=== PATIENT | female | born 1955 | race Hispanic/Latino ===

== ENCOUNTER 2016-12-20 19:13 | Emergency (ER) | payer MEDICARE ==
[2016-12-20 19:56] LABS: Hematocrit 39.7 % (30.3-42.9); Hemoglobin 13.1 gm/dl (10.1-14.3); Mean Corpuscular HGB Conc 33 % (30-34); Mean Corpuscular Hemoglobin 29 pg (28-32); Mean Corpuscular Volume 87 fl (79-97); Red Blood Count 4.59 M/mm3 (3.65-5.03); Red Cell Distribution Width 15.1 % (13.2-15.2); White Blood Count 10.4 K/mm3 (4.5-11.0)
[2016-12-20 19:57] LABS: Platelet Count 223 K/mm3 (140-440)
[2016-12-20 20:12] LABS: Anion Gap 19 mmol/L; BUN/Creatinine Ratio 18.57; Blood Urea Nitrogen 13 mg/dL (7-17); Calcium 9.3 mg/dL (8.4-10.2); Carbon Dioxide 23 mmol/L (22-30); Glucose 191 mg/dL (65-100); Magnesium 1.5 mg/dL (1.7-2.3); Potassium 4.4 mmol/L (3.6-5.0); Sodium 132 mmol/L (137-145)
--- NOTE | 2016-12-20 21:03 | Emergency Department Report ---
ED General Adult HPI - General Chief complaint: Nausea/Vomiting/Diarrhea Stated complaint: DIARRHEA Time Seen by Provider: 12/20/16 19:22 Source: patient, EMS, RN notes reviewed Mode of arrival: Stretcher Limitations: Physical Limitation - History of Present Illness Initial comments: This is a 61-year-old female. She is previously unknown to me. Past medical history of morbid obesity, possible distant history of C. 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 Also has a history of hypertension and diabetes. She is brought to the hospital by EMS for complaint of diarrhea for 3-6 months. Patient has seen her primary care doctor for this problem without relief. The patient reports one bowel movement yesterday. She reports 2 bowel movements today. No vomiting. No fevers or chills. No chest pain or shortness of breath. No recent antibiotic congestion. The patient reports that her contacted 911 because he is the only person who is caring for the patient, and the patient reports that the feels like he needs help with caring for the patient. -: Gradual, month(s) Consistency: intermittent Improves with: none Worsens with: none Associated Symptoms: denies: confusion, chest pain, cough, diaphoresis, fever/ chills, headaches, loss of appetite, malaise, shortness of breath, syncope, weakness - Related Data Home Medications Medication Instructions Recorded Confirmed Last Taken FLUoxetine [Prozac] 10 mg PO QDAY 01/26/14 01/26/14 Unknown Lisinopril [Zestril] 2.5 mg PO QDAY 01/26/14 01/26/14 Unknown Simvastatin [Zocor] 20 mg PO QHS 01/26/14 01/26/14 Unknown metFORMIN [Glucophage] 500 mg PO BID 01/26/14 01/26/14 Unknown Previous Rx's Medication Instructions Recorded Last Taken Type Amlodipine Besylate [Norvasc] 2.5 mg PO DAILY #90 tab 01/27/14 Unknown Rx Magnesium Oxide [Magnesium] 400 mg PO BID #14 tablet 12/20/16 Unknown Rx Nitrofurantoin [place]/M-Cryst 100 mg PO Q12HR #14 capsule 12/20/16 Unknown Rx [Macrobid CAP] Allergies Allergy/AdvReac Type Severity Reaction Status Date / Time No Known Allergies Allergy Unverified 01/26/14 15:11 ED Review of Systems ROS: Stated complaint: DIARRHEA Other details as noted in HPI Constitutional: denies: fever, malaise Eyes: denies: vision change ENT: denies: epistaxis Respiratory: denies: cough Cardiovascular: denies: chest pain Gastrointestinal: diarrhea. denies: abdominal pain Genitourinary: denies: urgency, dysuria Musculoskeletal: denies: back pain Skin: denies: lesions Neurological: weakness (chronic) Psychiatric: as per HPI ED Past Medical Hx - Past Medical History Hx Hypertension: Yes Hx Diabetes: Yes Hx Arthritis: Yes Hx COPD: Yes - Surgical History Additional Surgical History: 2011. - Social History Smoking Status: Never Smoker - Medications Home Medications: Home Medications Medication Instructions Recorded Confirmed Last Taken Type FLUoxetine [Prozac] 10 mg PO QDAY 01/26/14 01/26/14 Unknown History Lisinopril [Zestril] 2.5 mg PO QDAY 01/26/14 01/26/14 Unknown History Simvastatin [Zocor] 20 mg PO QHS 01/26/14 01/26/14 Unknown History metFORMIN [Glucophage] 500 mg PO BID 01/26/14 01/26/14 Unknown History Amlodipine Besylate [Norvasc] 2.5 mg PO DAILY #90 tab 01/27/14 Unknown Rx Magnesium Oxide [Magnesium] 400 mg PO BID #14 tablet 12/20/16 Unknown Rx Nitrofurantoin [place]/M-Cryst 100 mg PO Q12HR #14 capsule 12/20/16 Unknown Rx [Macrobid CAP] ED Physical Exam - General Limitations: Physical Limitation General appearance: alert, in no apparent distress - Head Head exam: Present: atraumatic, normocephalic - Eye Eye exam: Present: normal appearance, EOMI. Absent: nystagmus - ENT ENT exam: Present: normal exam, normal orophraynx, mucous membranes moist, normal external ear exam - Neck Neck exam: Present: normal inspection, full ROM. Absent: tenderness, meningismus - Respiratory Respiratory exam: Present: normal lung sounds bilaterally. Absent: respiratory distress, wheezes, rales, rhonchi, stridor, decreased breath sounds - Cardiovascular Cardiovascular Exam: Present: regular rate, normal rhythm, normal heart sounds. Absent: bradycardia, tachycardia, irregular rhythm, systolic murmur, diastolic murmur, rubs, gallop - GI/Abdominal GI/Abdominal exam: Present: soft, normal bowel sounds. Absent: distended, tenderness, guarding, rebound, rigid, pulsatile mass - Rectal Rectal exam: Present: deferred, normal inspection, other (no obvious skin breakdown.) - Extremities Exam Extremities exam: Present: normal inspection, full ROM, normal capillary refill. Absent: tenderness, pedal edema, joint swelling, calf tenderness - Back Exam Back exam: Present: normal inspection, full ROM. Absent: tenderness, CVA tenderness (R), CVA tenderness (L), muscle spasm, paraspinal tenderness, vertebral tenderness - Neurological Exam Neurological exam: Present: alert, other (patient moves 4 extremities spontaneously. There is no facial droop.) - Psychiatric Psychiatric exam: Present: normal affect, normal mood - Skin Skin exam: Present: warm, dry, intact, normal color. Absent: rash ED Course Vital Signs 12/20/16 12/20/16 12/20/16 19:20 20:16 20:19 Temperature 97.7 F Pulse Rate 90 83 90 Respiratory 20 16 22 Rate Blood Pressure 117/49 117/49 O2 Sat by Pulse 96 95 94 Oximetry 12/20/16 12/20/16 12/20/16 20:20 20:23 20:25 Temperature Pulse Rate 82 86 88 Respiratory 23 20 23 Rate Blood Pressure 117/49 117/49 O2 Sat by Pulse 96 96 95 Oximetry 12/20/16 12/20/16 12/20/16 20:27 20:29 20:30 Temperature Pulse Rate 93 H 88 89 Respiratory 18 16 21 Rate Blood Pressure 117/49 117/49 130/68 O2 Sat by Pulse 94 95 94 Oximetry 12/20/16 12/20/16 12/20/16 20:33 20:35 20:37 Temperature Pulse Rate 90 94 H 87 Respiratory 20 19 21 Rate Blood Pressure 130/68 130/68 130/68 O2 Sat by Pulse 96 95 95 Oximetry 12/20/16 12/20/16 12/20/16 20:39 20:41 20:43 Temperature Pulse Rate 88 88 87 Respiratory 19 14 20 Rate Blood Pressure 130/68 130/68 130/68 O2 Sat by Pulse 98 97 96 Oximetry 12/20/16 12/20/16 12/20/16 20:45 20:47 20:49 Temperature Pulse Rate 91 H 93 H 88 Respiratory 20 19 27 H Rate Blood Pressure 130/68 130/68 130/68 O2 Sat by Pulse 96 95 96 Oximetry 12/20/16 12/20/16 12/20/16 20:51 20:53 20:55 Temperature Pulse Rate 90 92 H 104 H Respiratory 15 19 13 Rate Blood Pressure 130/68 130/68 130/68 O2 Sat by Pulse 99 98 Oximetry 12/20/16 12/20/16 12/20/16 20:57 20:59 21:01 Temperature Pulse Rate 83 83 83 Respiratory 16 20 16 Rate Blood Pressure 130/68 130/68 130/68 O2 Sat by Pulse Oximetry 12/20/16 12/20/16 12/20/16 21:03 21:05 21:07 Temperature Pulse Rate 87 83 83 Respiratory 22 22 19 Rate Blood Pressure 130/68 130/68 130/68 O2 Sat by Pulse Oximetry 12/20/16 12/20/16 12/20/16 21:09 21:11 21:13 Temperature Pulse Rate 82 97 H 86 Respiratory 18 16 17 Rate Blood Pressure 130/68 130/68 130/68 O2 Sat by Pulse Oximetry 12/20/16 12/20/16 12/20/16 21:15 21:17 21:19 Temperature Pulse Rate 83 83 79 Respiratory 13 20 10 L Rate Blood Pressure 130/68 130/68 130/68 O2 Sat by Pulse Oximetry 12/20/16 12/20/16 12/20/16 21:21 21:23 21:25 Temperature Pulse Rate 89 82 81 Respiratory 17 23 17 Rate Blood Pressure 130/68 130/68 130/68 O2 Sat by Pulse Oximetry 12/20/16 12/20/16 12/20/16 21:27 21:29 21:31 Temperature Pulse Rate 82 81 82 Respiratory 12 16 22 Rate Blood Pressure 130/68 130/68 130/68 O2 Sat by Pulse Oximetry 12/20/16 12/20/16 12/20/16 21:33 21:35 21:37 Temperature Pulse Rate 78 81 84 Respiratory 21 25 H 22 Rate Blood Pressure 130/68 130/68 130/68 O2 Sat by Pulse Oximetry 12/20/16 12/20/16 12/20/16 21:39 21:41 21:43 Temperature Pulse Rate 84 91 H 89 Respiratory 15 26 H 11 L Rate Blood Pressure 130/68 130/68 130/68 O2 Sat by Pulse Oximetry 12/20/16 12/20/16 12/20/16 21:45 21:47 21:49 Temperature Pulse Rate 78 83 81 Respiratory 17 17 18 Rate Blood Pressure 130/68 130/68 130/68 O2 Sat by Pulse Oximetry 12/20/16 12/20/16 12/20/16 21:51 21:53 21:54 Temperature Pulse Rate 89 85 97 H Respiratory 24 18 14 Rate Blood Pressure 130/68 130/68 130/68 O2 Sat by Pulse Oximetry 12/20/16 12/20/16 23:07 23:09 Temperature Pulse Rate 84 Respiratory 27 H Rate Blood Pressure 130/68 138/65 O2 Sat by Pulse 93 94 Oximetry - Reevaluation(s) Reevaluation #1: 12/20/16 21:11 Differential diagnosis: Electrolyte imbalance, urinary tract infection, irritable bowel syndrome Assessment and plan: 61-year-old female with reported history of 6 months of diarrhea. No recent antibiotic use. Reports one bowel movement yesterday, 2 bowel movements today. She is afebrile with reassuring vital signs. No leukocytosis, no recent antibiotic use, I think C. difficile is unlikely. She is somewhat hypomagnesemic, we will replete her magnesium orally and discharged with oral magnesium. Urinalysis is pending, C. difficile assay is pending. A case management consult was placed to see if the patient's is eligible for any home services. The patient can follow up with outpatient gastroenterology. I don't believe she requires admission based on chronicity of symptoms, her ability to tolerate liquid feeds, and benign physical examination. While the patient is in the emergency department, to be safe, we will initiate contact precautions. Reevaluation #2: 12/20/16 23:27 Vital signs unremarkable. Tolerating liquid feeds. Urinalysis suggestive of urinary tract infection. Patient will be discharged with Macrobid. ED Medical Decision Making - Lab Data Result diagrams: 12/20/16 19:38 12/20/16 19:38 Vital Signs 12/20/16 19:20 Temperature 97.7 F Pulse Rate 90 Respiratory 20 Rate Blood Pressure 117/49 O2 Sat by Pulse 96 Oximetry Lab Results 12/20/16 12/20/16 Range/Units 19:38 19:38 WBC 10.4 (4.5-11.0) K/mm3 RBC 4.59 (3.65-5.03) M/mm3 Hgb 13.1 (10.1-14.3) gm/dl Hct 39.7 (30.3-42.9) % MCV 87 (79-97) fl MCH 29 (28-32) pg MCHC 33 (30-34) % RDW 15.1 (13.2-15.2) % Plt Count 223 (140-440) K/mm3 Sodium 132 L (137-145) mmol/L Potassium 4.4 (3.6-5.0) mmol/L Chloride 94.0 L (98-107) mmol/L Carbon Dioxide 23 (22-30) mmol/L Anion Gap 19 mmol/L BUN 13 (7-17) mg/dL Creatinine 0.7 (0.7-1.2) mg/dL Estimated GFR > 60 ml/min BUN/Creatinine Ratio 18.57 % Glucose 191 H (65-100) mg/dL Calcium 9.3 (8.4-10.2) mg/dL Magnesium 1.5 L (1.7-2.3) mg/dL Critical care attestation.: If time is entered above; I have spent that time in minutes in the direct care of this critically ill patient, excluding procedure time. ED Disposition Clinical Impression: Diarrhea Disposition: DISCHARGED TO HOME OR SELFCARE Is pt being admited?: No Does the pt Need Aspirin: No Condition: Stable Instructions: Chronic Diarrhea (ED) Additional Instructions: Samples were sent today, results will be available in the next 3-5 days. Have a primary care doctor contact the medical records department to obtain culture results. I recommend that you follow up with a industrial maintenance tech within the next 2-[address] Marr is a local industrial maintenance tech. [facility] is a local gastroenterology practice, they have a patient service hotline where they can be reached: [phone].TO.[phone] ([phone]) Return to the ER right away with fevers or chills, chest pain or shortness of breath, intractable nausea or vomiting, inability to tolerate liquid feeds. Prescriptions: Magnesium Oxide [Magnesium] 400 mg PO BID #14 tablet Nitrofurantoin [place]/M-Cryst [Macrobid CAP] 100 mg PO Q12HR #14 capsule Referrals: VAMSI MURGUIA MD [Primary Care Provider] - 3-5 Days ZAK MARR MD [Staff Physician] - 3-5 Days
[2016-12-20] MEDS ORDERED: MAG-OX PO ONE (21:05)
[2016-12-20 22:50] LABS: Bacteria,Urine 1+ /HPF (Negative); Bilirubin,Urine NEG (Negative); Blood,Urine SM (Negative); Ketones,Urine NEG (Negative); Leukocyte Esterase,Urine MOD (Negative); Mucus,Urine FEW /HPF; Nitrite,Urine NEG (Negative)
[2016-12-20 23:15] VITALS: BP 138/65
== END 2016-12-20 21:20 | disposition home or self-care (01) ==
LOC: ED 19:13
DX: R19.7 Diarrhea, unspecified (principal); I10 Essential (primary) hypertension; E11.9 Type 2 diabetes mellitus without complications; J44.9 Chronic obstructive pulmonary disease, unspecified; M19.90 Unspecified osteoarthritis, unspecified site
CPT/HCPCS: 36415; 80048; 81001; 83735; 85027; 87493; 99284

== ENCOUNTER 2018-01-22 12:12 | Emergency (ER) | payer MEDICARE ==
[2018-01-22 12:38] VITALS: BP 148/82
[2018-01-22] MEDS ORDERED: LIDOCAINE VISCOUS 2% PO ONE (12:46)
[2018-01-22] MEDS ORDERED: ALUM-MAG HYDROX-SIMETH 200-200-20MG/5ML PO ONE (12:46)
--- NOTE | 2018-01-22 12:50 | Emergency Department Report ---
ED Abdominal Pain HPI - General Chief Complaint: Abdominal Pain Stated Complaint: ABD PAIN Time Seen by Provider: 01/22/18 12:40 Source: patient, EMS Mode of arrival: Stretcher Limitations: Physical Limitation - History of Present Illness Initial Comments: Patient is 62 years old bedbound female with history of hypertension and diabetes. Patient presented via EMS complaining of abdominal pain for more than one month. Patient stated that her pain usually come on after she eats. Then associated with nausea but no vomiting. Patient denied any fever, chest pain or shortness of breath or cough. MD Complaint: abdominal pain -: month(s) Location: epigastric Migration to: no migration Severity: moderate Consistency: constant Associated Symptoms: nausea. denies: vomiting, diarrhea, fever, chills, constipation, dysuria, hematemesis - Related Data Home Medications Medication Instructions Recorded Confirmed Last Taken FLUoxetine [Prozac] 10 mg PO QDAY 01/26/14 01/26/14 Unknown Lisinopril [Zestril] 2.5 mg PO QDAY 01/26/14 01/26/14 Unknown Simvastatin [Zocor] 20 mg PO QHS 01/26/14 01/26/14 Unknown metFORMIN [Glucophage] 500 mg PO BID 01/26/14 01/26/14 Unknown Previous Rx's Medication Instructions Recorded Last Taken Type Amlodipine Besylate [Norvasc] 2.5 mg PO DAILY #90 tab 01/27/14 Unknown Rx Magnesium Oxide [Magnesium] 400 mg PO BID #14 tablet 12/20/16 Unknown Rx Nitrofurantoin [place]/M-Cryst 100 mg PO Q12HR #14 capsule 12/20/16 Unknown Rx [Macrobid CAP] Ciprofloxacin HCl [Ciprofloxacin 500 mg PO Q12H #14 tab 01/22/18 Unknown Rx TAB] Esomeprazole Magnesium [NexIUM] 40 mg PO QDAY #30 capsule. 01/22/18 Unknown Rx Ondansetron [Zofran Odt] 4 mg PO Q8HR PRN #14 tab.tc 01/22/18 Unknown Rx traMADol [Ultram] 50 mg PO Q6HR PRN #14 tablet 01/22/18 Unknown Rx Allergies Allergy/AdvReac Type Severity Reaction Status Date / Time No Known Allergies Allergy Unverified 01/26/14 15:11 ED Review of Systems ROS: Stated complaint: ABD PAIN Other details as noted in HPI Comment: All other systems reviewed and negative Constitutional: denies: chills, fever Respiratory: denies: cough, orthopnea, shortness of breath, SOB with exertion, SOB at rest, wheezing Cardiovascular: denies: chest pain, palpitations, dyspnea on exertion Gastrointestinal: abdominal pain, nausea. denies: vomiting, diarrhea, constipation, hematemesis, melena, hematochezia Genitourinary: denies: urgency, frequency, hematuria Musculoskeletal: denies: back pain Neurological: denies: headache, weakness ED Past Medical Hx - Past Medical History Previous Medical History?: Yes Hx Hypertension: Yes Hx Diabetes: Yes Hx Arthritis: Yes Hx COPD: Yes - Surgical History Past Surgical History?: Yes Additional Surgical History: BACK 2012; non-ambulatory since surgery - Social History Smoking Status: Never Smoker Substance Use Type: None - Medications Home Medications: Home Medications Medication Instructions Recorded Confirmed Last Taken Type FLUoxetine [Prozac] 10 mg PO QDAY 01/26/14 01/26/14 Unknown History Lisinopril [Zestril] 2.5 mg PO QDAY 01/26/14 01/26/14 Unknown History Simvastatin [Zocor] 20 mg PO QHS 01/26/14 01/26/14 Unknown History metFORMIN [Glucophage] 500 mg PO BID 01/26/14 01/26/14 Unknown History Amlodipine Besylate [Norvasc] 2.5 mg PO DAILY #90 tab 01/27/14 Unknown Rx Magnesium Oxide [Magnesium] 400 mg PO BID #14 tablet 12/20/16 Unknown Rx Nitrofurantoin [place]/M-Cryst 100 mg PO Q12HR #14 capsule 12/20/16 Unknown Rx [Macrobid CAP] Ciprofloxacin HCl [Ciprofloxacin 500 mg PO Q12H #14 tab 01/22/18 Unknown Rx TAB] Esomeprazole Magnesium [NexIUM] 40 mg PO QDAY #30 capsule. 01/22/18 Unknown Rx Ondansetron [Zofran Odt] 4 mg PO Q8HR PRN #14 tab.rapdis 01/22/18 Unknown Rx traMADol [Ultram] 50 mg PO Q6HR PRN #14 tablet 01/22/18 Unknown Rx ED Physical Exam - General Limitations: Physical Limitation General appearance: alert, in no apparent distress - Head Head exam: Present: atraumatic, normocephalic, normal inspection - Eye Eye exam: Present: normal appearance, PERRL - ENT ENT exam: Present: normal exam, normal orophraynx, mucous membranes moist - Neck Neck exam: Present: normal inspection. Absent: tenderness - Respiratory Respiratory exam: Present: normal lung sounds bilaterally. Absent: respiratory distress, wheezes, rales, rhonchi, decreased breath sounds, prolonged expiratory - Cardiovascular Cardiovascular Exam: Present: regular rate, normal rhythm, normal heart sounds - GI/Abdominal GI/Abdominal exam: Present: soft, normal bowel sounds. Absent: distended, tenderness, guarding, rebound, rigid, organomegaly, mass, bruit, pulsatile mass , hernia - Extremities Exam Extremities exam: Present: normal inspection, full ROM, normal capillary refill - Back Exam Back exam: Present: normal inspection, full ROM. Absent: CVA tenderness (R), CVA tenderness (L), muscle spasm, paraspinal tenderness - Neurological Exam Neurological exam: Present: alert, oriented X3, CN II-XII intact, normal gait - Skin Skin exam: Present: warm, intact, normal color ED Course Vital Signs 01/22/18 01/22/18 01/22/18 12:28 12:31 12:35 Temperature 98.3 F Pulse Rate 77 72 Respiratory 19 16 Rate Blood Pressure 148/82 148/82 148/82 Blood Pressure [Left] O2 Sat by Pulse 99 97 99 Oximetry 01/22/18 01/22/18 01/22/18 12:45 12:48 13:01 Temperature 98.2 F Pulse Rate 74 78 82 Respiratory 14 16 26 H Rate Blood Pressure 148/82 148/82 Blood Pressure 148/82 [Left] O2 Sat by Pulse 97 100 93 Oximetry 01/22/18 01/22/18 01/22/18 13:15 13:31 13:46 Temperature Pulse Rate 76 85 75 Respiratory 18 26 H 11 L Rate Blood Pressure 148/82 148/82 Blood Pressure [Left] O2 Sat by Pulse 96 94 95 Oximetry 01/22/18 17:20 Temperature Pulse Rate Respiratory 16 Rate Blood Pressure Blood Pressure 148/82 [Left] O2 Sat by Pulse Oximetry - Reevaluation(s) Reevaluation #1: 01/22/18 16:08 Patient stated that she is feeling much better. ED Medical Decision Making - Lab Data Result diagrams: 01/22/18 12:47 01/22/18 12:47 Critical care attestation.: If time is entered above; I have spent that time in minutes in the direct care of this critically ill patient, excluding procedure time. ED Disposition Clinical Impression: Abdominal pain, Gallbladder stone with nonacute cholecystitis, UTI (urinary tract infection) Disposition: TO HOME OR SELFCARE Is pt being admited?: No Condition: Stable Instructions: Biliary Colic (ED), Abdominal Pain (ED) Prescriptions: Ciprofloxacin HCl [Ciprofloxacin TAB] 500 mg PO Q12H #14 tab Esomeprazole Magnesium [NexIUM] 40 mg PO QDAY #30 capsule. Ondansetron [Zofran Odt] 4 mg PO Q8HR PRN #14 tab.rapdis PRN Reason: Nausea And Vomiting traMADol [Ultram] 50 mg PO Q6HR PRN #14 tablet PRN Reason: Pain Referrals: PRIMARY CAREMD [Primary Care Provider] - 3-5 Days SHANNON BEJARANO MD [Staff Physician] - 3-5 Days
[2018-01-22 13:05] LABS: Basophils % (Auto) 0.5 % (0.0-1.8); Eosinophils # (Auto) 0.1 K/mm3 (0.0-0.4); Eosinophils % (Auto) 1.6 % (0.0-4.3); Hematocrit 38.1 % (30.3-42.9); Hemoglobin 12.4 gm/dl (10.1-14.3); Lymphocytes % (Auto) 12.7 % (13.4-35.0); Mean Corpuscular HGB Conc 33 % (30-34); Mean Corpuscular Hemoglobin 27 pg (28-32); Mean Corpuscular Volume 84 fl (79-97); Monocytes # (Auto) 0.5 K/mm3 (0.0-0.8); Monocytes % (Auto) 5.8 % (0.0-7.3); Platelet Count 241 K/mm3 (140-440); Red Blood Count 4.52 M/mm3 (3.65-5.03); Red Cell Distribution Width 16.6 % (13.2-15.2)
[2018-01-22 13:47] LABS: Bilirubin,Urine NEG (Negative); Blood,Urine NEG (Negative); Color,Urine Yellow (Yellow)
[2018-01-22 14:10] LABS: Alanine Aminotransferase 6 units/L (7-56); Albumin 2.8 g/dL (3.9-5); BUN/Creatinine Ratio 16; Blood Urea Nitrogen 11 mg/dL (7-17); Calcium 8.4 mg/dL (8.4-10.2); Hemolysis Index 8
--- NOTE | 2018-01-22 15:58 | Ultrasound Report ---
FINAL REPORT EXAM: US ABDOMEN LIMITED HISTORY: abdominal pain TECHNIQUE: Ultrasound examination of the abdomen PRIORS: None. FINDINGS: Technologist reports very limited examination due to patient body habitus (morbid obesity). Normal-appearing visible portion of aorta, common bile duct, right kidney, and pancreas. IVC obscured. No evidence of upper abdominal ascites. Normal gallbladder wall thickness and no pericholecystic fluid. Nonspecific increased echogenicity of liver parenchyma may reflect fatty infiltration. Nonspecific slight shadowing echogenicity in the gallbladder neck may be a gallstone. This may be artifact from gas in the adjacent duodenal bulb. IMPRESSION: Body habitus severely limits examination Liver with diffuse parenchymal change may reflect hepatocellular disease, commonly steatosis. Nonspecific shadowing echogenicity in gallbladder neck region may be a gallstone. Differential includes artifact from gas in the adjacent duodenal bulb
== END 2018-01-22 18:55 | disposition home or self-care (01) ==
LOC: ED 12:12
DX: N39.0 Urinary tract infection, site not specified (principal); I10 Essential (primary) hypertension; E11.9 Type 2 diabetes mellitus without complications; J44.9 Chronic obstructive pulmonary disease, unspecified; M19.90 Unspecified osteoarthritis, unspecified site
CPT/HCPCS: 36415; 76705; 80053; 81001; 83690; 85025; 99284

== ENCOUNTER 2018-02-01 12:14 | Emergency (ER) | payer MEDICARE ==
[2018-02-01 12:56] VITALS: BP 116/45
[2018-02-01] MEDS ORDERED: DELTASONE PO ONE (16:04)
[2018-02-01] MEDS ORDERED: PEPCID PO ONE (16:05)
--- NOTE | 2018-02-01 16:06 | Emergency Department Report ---
ED Allergic Reaction HPI - General Chief complaint: Skin Rash Stated complaint: RASH Time Seen by Provider: 02/01/18 16:00 Source: patient Mode of arrival: Stretcher Limitations: No Limitations - History of Present Illness MD Complaint: allergic reaction (patient reports that she was prescribed tramadol after Gall Bladder surgery. Reports experienced a generalized rash erythematous and urticarial after taking the medication. ) -: days(s) (1) Exposure: medication (tramadol possibly. Reports no known allergies beforehand) Symptoms: rash, itching. denies: facial swelling, lip swelling, difficulty swallowing, difficulty breathing, orolingual swelling, hoarseness, syncopy, dizziness, nausea, vomiting, abdominal pain Severity: mild Treatment Prior to Arrival: benadryl - Related Data Home Medications Medication Instructions Recorded Confirmed Last Taken Carvedilol [Coreg] 6.25 mg PO DAILY 01/25/18 01/25/18 Unknown FLUoxetine HCL [FLUoxetine] 20 mg PO QDAY 01/25/18 01/25/18 Unknown Gabapentin [Neurontin] 300 mg PO BID 01/25/18 01/25/18 Unknown Glimepiride [Amaryl] 4 mg PO DAILY 01/25/18 01/25/18 Unknown Previous Rx's Medication Instructions Recorded Last Taken Type Esomeprazole Magnesium [NexIUM] 40 mg PO QDAY #30 capsule. 01/22/18 01/23/18 Rx Ondansetron [Zofran ODT TAB] 4 mg PO Q8HR PRN #14 tab.rapdis 01/22/18 01/23/18 Rx Phenol 1.4% [Chloraseptic] 1 spray MM PRN PRN #1 bottle 01/29/18 Unknown Rx traMADol [Ultram 50 MG tab] 50 mg PO Q6HR PRN #14 tablet 01/29/18 Unknown Rx EPINEPHrine [Epipen 2-Timoteo] 0.3 mg IM ONCE PRN 1 Days #1 pack 02/01/18 Unknown Rx Famotidine [Pepcid] 20 mg PO BID #10 tablet 02/01/18 Unknown Rx diphenhydrAMINE [Benadryl CAP] 50 mg PO QHS #5 capsule 02/01/18 Unknown Rx predniSONE [Deltasone] 20 mg PO QDAY #5 tab 02/01/18 Unknown Rx Allergies Allergy/AdvReac Type Severity Reaction Status Date / Time No Known Allergies Allergy Unverified 01/26/14 15:11 ED Review of Systems ROS: Stated complaint: RASH Other details as noted in HPI Other: GENERAL: No weight change, fatigue, weakness, fever, chills, or night sweats SKIN: Generalized erythema, itching. No jaundice HEAD: No trauma, headache, or visual changes EYES: No blurriness, tearing, itching, acute visual loss, conjunctival discoloration, or scleral icterus EARS: No hearing loss, tinnitus, vertigo, or earache NOSE: No rhinorrhea, stuffiness, sneezing, itching, or epistaxis MOUTH: No bleeding gums, hoarseness, sore throat, or swelling CARDIAC: No new murmur, chest pain, palpitations, dyspnea on exertion, orthopnea , PND, or edema RESPIRATORY: No shortness of breath, wheeze, cough, sputum production, hemoptysis, pneumonia, asthma, bronchitis, or emphysema GI: No change in appetite, nausea, vomiting, dysphagia, change in bowel frequency, diarrhea, constipation, bleeding, hematemesis, melena, hematochezia, or abdominal pain URINARY: No frequency, urgency, polyuria, dysuria, hematuria, or incontinence MUSCULOSKELETAL: No muscle weakness, joint stiffness, decrease in range of motion, redness, swelling NEUROLOGIC: No loss of sensation, numbness, tingling, tremors, weakness, paralysis, seizures HEMATOLOGIC: No anemia, easy bruising, bleeding, petechiae, or purpura ENDOCRINE: No hot or cold intolerance, sweating, polyuria, polydipsia or, polyphagia no thyroid problems PSYCHIATRIC: No change in mood, no anxiety, no depression ED Past Medical Hx - Past Medical History Hx Hypertension: Yes Hx Heart Attack/AMI: No Hx Diabetes: Yes Hx Arthritis: Yes Hx COPD: Yes (non-oxygen dependent. on Nasal Cannula here in hospital) Additional medical history: Anxiety, Neuropathy - Surgical History Additional Surgical History: BACK 2011; non-ambulatory since surgery - Social History Smoking Status: Never Smoker Substance Use Type: None - Medications Home Medications: Home Medications Medication Instructions Recorded Confirmed Last Taken Type Esomeprazole Magnesium [NexIUM] 40 mg PO QDAY #30 capsule. 01/22/18 01/24/18 01/23/18 Rx Ondansetron [Zofran ODT TAB] 4 mg PO Q8HR PRN #14 tab.tc 01/22/18 01/24/18 01/23/18 Rx Carvedilol [Coreg] 6.25 mg PO DAILY 01/25/18 01/25/18 Unknown History FLUoxetine HCL [FLUoxetine] 20 mg PO QDAY 01/25/18 01/25/18 Unknown History Gabapentin [Neurontin] 300 mg PO BID 01/25/18 01/25/18 Unknown History Glimepiride [Amaryl] 4 mg PO DAILY 01/25/18 01/25/18 Unknown History Phenol 1.4% [Chloraseptic] 1 spray MM PRN PRN #1 bottle 01/29/18 Unknown Rx traMADol [Ultram 50 MG tab] 50 mg PO Q6HR PRN #14 tablet 01/29/18 Unknown Rx EPINEPHrine [Epipen 2-Timoteo] 0.3 mg IM ONCE PRN 1 Days #1 pack 02/01/18 Unknown Rx Famotidine [Pepcid] 20 mg PO BID #10 tablet 02/01/18 Unknown Rx diphenhydrAMINE [Benadryl CAP] 50 mg PO QHS #5 capsule 02/01/18 Unknown Rx predniSONE [Deltasone] 20 mg PO QDAY #5 tab 02/01/18 Unknown Rx ED Physical Exam - General Limitations: No Limitations - Other Other exam information: GENERAL: Patient in no acute distress HEAD: Normocephalic, atraumatic EYES: PERRLA, EOM intact, no scleral icterus, visual bermeo and acuity wnl NOSE: No tenderness, discharge, sinus tenderness MOUTH: No erythema, bleeding, exudate HEART: Regular rate and rhythm, no murmur, S1-S2 are auscultated, pulses are symmetric LUNGS: bilateral breath sounds. No wheezing, rales, rhonchi ABDOMEN: Normal bowel sounds, no tenderness, no rebound, no guarding, no masses , no CVA tenderness MUSCULOSKELETAL: Normal joint range of motion, no redness, no swelling, no tenderness NEUROLOGIC: GCS 15, Alert and Oriented x3, Cranial nerves intact, normal sensation, normal strength, normal gait, no cerebellar deficit SKIN: Erythema generalized blanching, non tender, no discharge maculopapular. Surgical incisions over the abdomen healing well no discharge or tenderness ED Course Vital Signs 02/01/18 12:52 Temperature 97.6 F Pulse Rate 85 Respiratory 16 Rate Blood Pressure 116/45 O2 Sat by Pulse 95 Oximetry ED Medical Decision Making - Medical Decision Making Patient comfortable. Plan discharge with outpatient follow up. Patient agrees to closely monitor sugars at home and will return if they remain elevated. Patient agrees with plan and will return if symptoms worsen. Agrees to discontinue the tramadol. Reports that she is not taking any pain medication currently and not in pain. Critical care attestation.: If time is entered above; I have spent that time in minutes in the direct care of this critically ill patient, excluding procedure time. ED Disposition Clinical Impression: Allergic reaction caused by a drug Qualifiers: Encounter type: initial encounter Qualified Code(s): T78.40XA - Allergy, unspecified, initial encounter Disposition: TO HOME OR SELFCARE Is pt being admited?: No Condition: Stable Instructions: Adverse Drug Reaction (ED) Prescriptions: diphenhydrAMINE [Benadryl CAP] 50 mg PO QHS #5 capsule EPINEPHrine [Epipen 2-Timoteo] 0.3 mg IM ONCE PRN 1 Days #1 pack PRN Reason: Allergic Reaction Famotidine [Pepcid] 20 mg PO BID #10 tablet predniSONE [Deltasone] 20 mg PO QDAY #5 tab Referrals: PRIMARY CARE, [Primary Care Provider] - 2-3 Days Time of Disposition: 16:14
== END 2018-02-01 20:02 | disposition home or self-care (01) ==
LOC: ED 12:14
DX: T88.7XXA Unspecified adverse effect of drug or medicament, initial encounter (principal); I10 Essential (primary) hypertension; M19.90 Unspecified osteoarthritis, unspecified site; J44.9 Chronic obstructive pulmonary disease, unspecified; E11.40 Type 2 diabetes mellitus with diabetic neuropathy, unspecified; F41.9 Anxiety disorder, unspecified; Y92.89 Other specified places as the place of occurrence of the external cause
CPT/HCPCS: 99283; J7512